=== PATIENT | male | born 1945 | race Caucasian/White ===

== ENCOUNTER 2023-05-24 12:10 | Inpatient (IN) | payer MEDICARE, OTHER ==
[~2023-05-24] VITALS: Ht 162.6 cm; Wt 65.3 kg
[2023-05-24] MEDS ORDERED: IV NORMAL SALINE 1000 ML BAG IV ONE (12:30)
[2023-05-24 13:06] LABS: BASOPHILS % (AUTO) 0.3 % (0.0-2.0); EOSINOPHILS # (AUTO) 0.1 K/uL (0.0-0.7); EOSINOPHILS % (AUTO) 1.6 % (0.0-7.0); HEMATOCRIT 40.8 % (36.7-47.1); HEMOGLOBIN 13.7 g/dL (12.5-16.3); LYMPHOCYTES % (AUTO) 15.3 % (20.5-51.5); MEAN CORPUSCULAR HEMOGLOBIN 31.4 uug (23.8-33.4); MEAN CORPUSCULAR HGB CONC 34 g/dL (32.5-36.3); MEAN CORPUSCULAR VOLUME 93.7 fL (73.0-96.2); MONOCYTES # (AUTO) 0.4 K/uL (0.1-1.30); MONOCYTES % (AUTO) 6.4 % (0.0-11.0); NEUTROPHILS # (AUTO) 5.2 K/uL (1.8-8.9); NEUTROPHILS % (AUTO) 76.4 % (38.5-71.5); PLATELET COUNT (AUTO) 150 K/uL (152-348); RED BLOOD CELL COUNT(AUTO) 4.36 MIL/uL (4.06-5.63); RED CELL DISTRIBUTION WIDTH 13.8 % (12.1-16.2); WHITE BLOOD COUNT (AUTO) 6.9 K/uL (3.6-10.2)
[2023-05-24 13:16] LABS: CALCIUM 8.7 mg/dL (8.5-10.1); CARBON DIOXIDE 28 mmol/L (21-32); CHLORIDE 107 mmol/L (98-107); CREATININE 1.3 mg/dL (0.6-1.3); GLUCOSE 94 mg/dL (74-106); POTASSIUM 3.9 mmol/L (3.5-5.1); SODIUM SERUM 143 mmol/L (136-145); UREA NITROGEN, BLOOD 32 mg/dL (7-18)
[2023-05-24 13:21] LABS: AMMONIA < 10 umol/L (11-32)
[2023-05-24 13:22] LABS: ALANINE AMINOTRANSFERASE 21 U/L (16-63); ALKALINE PHOSPHATASE 81 U/L (50-136); ASPARTATE AMINOTRANSFERASE 8 U/L (15-37); BILIRUBIN,DIRECT 0.1 mg/dL (0.0-0.2); BILIRUBIN,TOTAL 0.3 mg/dL (0.2-1.0); TOTAL PROTEIN, SERUM 6.3 g/dL (6.4-8.2)
[2023-05-24 13:27] LABS: THYROID STIMULATING HORMONE 1.828 mIU/mL (0.358-3.740)
[2023-05-24] MEDS ORDERED: IV NS 1000 ML 1,000 ML IV ONE (13:45)
[2023-05-24] MEDS ORDERED: MAGNESIUM HYDROXIDE 30 ML LIQUID UDC PO PRN (14:15)
[2023-05-24] MEDS ORDERED: ONDANSETRON 4 MG/2 ML VIAL IV PRN (14:15)
[2023-05-24] MEDS ORDERED: ACETAMINOPHEN 325 MG TABLET PO PRN (14:15)
[2023-05-24 15:13] LABS: *BILIRUBIN,URIN NEGATIVE (NEGATIVE); *BLOOD, URINE NEGATIVE (NEGATIVE); *CLARITY,URINE CLEAR (CLEAR); *COLOR,URINE YELLOW (YELLOW); *KETONES,URINE NEGATIVE (NEGATIVE); *PROTEIN,URINE NEGATIVE (NEGATIVE); *UROBILINOGEN,URINE 0.2 E.U./dl (NORMAL); LEUKOCYTE ESTERASE ,URINE NEGATIVE (NEGATIVE); NITRITE, URINE NEGATIVE (NEGATIVE); UGLUCOSE NEGATIVE (NEGATIVE)
[2023-05-24] MEDS ORDERED: CARB200C6 PO (16:38)
[2023-05-24] MEDS ORDERED: CLOP75TA33 PO (16:38)
[2023-05-24] MEDS ORDERED: AMIT50TA3 PO (16:38)
[2023-05-24] MEDS ORDERED: HYDR12.55 PO (16:39)
[2023-05-24] MEDS ORDERED: SIMV-46 PO (16:39)
[2023-05-24] MEDS ORDERED: OXYB-58 PO (16:39)
[2023-05-24] MEDS ORDERED: LATA2.5D2 EACHEYE (16:39)
[2023-05-24] MEDS ORDERED: TAMS-3 PO (16:39)
[2023-05-24] MEDS ORDERED: TERB250T53 PO (16:39)
[2023-05-24] MEDS ORDERED: FINA5TAB11 PO (16:39)
[2023-05-24] MEDS ORDERED: METO-356 PO (16:39)
[2023-05-24] MEDS ORDERED: BRIM5DRO2 EACHEYE (16:39)
[2023-05-24] MEDS ORDERED: LOVA40TA2 PO (16:39)
[2023-05-24] MEDS ORDERED: PSYL1POW MC (16:39)
[2023-05-24 17:01] VITALS: BP 130/62; TEMP 98; O2SAT 79
[2023-05-24 17:10] VITALS: BP 133/60; O2SAT 92
[2023-05-24 17:31] VITALS: BP 141/62; TEMP 97.4; O2SAT 97
[2023-05-24] MEDS: IV NS 1000 ML 1,000 ML IV PRN ×2 (18:16→20:50)
[2023-05-24 20:30] VITALS: BP 136/50; TEMP 97.9; O2SAT 97
[2023-05-24] MEDS: HYDROCODONE/APAP 10-325 MG TABLET PO PRN (23:08)
[2023-05-25 04:45] VITALS: BP 128/48; TEMP 97.6; O2SAT 98
[2023-05-25 06:50] LABS: BASOPHILS % (AUTO) 0.8 % (0.0-2.0); EOSINOPHILS # (AUTO) 0.1 K/uL (0.0-0.7); EOSINOPHILS % (AUTO) 1.9 % (0.0-7.0); HEMATOCRIT 39.4 % (36.7-47.1); HEMOGLOBIN 13.1 g/dL (12.5-16.3); LYMPHOCYTES # (AUTO) 1.5 K/uL (0.8-4.8); LYMPHOCYTES % (AUTO) 23.4 % (20.5-51.5); MEAN CORPUSCULAR HEMOGLOBIN 31.2 uug (23.8-33.4); MEAN CORPUSCULAR HGB CONC 33 g/dL (32.5-36.3); MEAN CORPUSCULAR VOLUME 94.3 fL (73.0-96.2); MONOCYTES # (AUTO) 0.4 K/uL (0.1-1.30); MONOCYTES % (AUTO) 6.3 % (0.0-11.0); NEUTROPHILS # (AUTO) 4.2 K/uL (1.8-8.9); NEUTROPHILS % (AUTO) 67.6 % (38.5-71.5); PLATELET COUNT (AUTO) 145 K/uL (152-348); RED BLOOD CELL COUNT(AUTO) 4.18 MIL/uL (4.06-5.63); RED CELL DISTRIBUTION WIDTH 13.9 % (12.1-16.2); WHITE BLOOD COUNT (AUTO) 6.2 K/uL (3.6-10.2)
[2023-05-25 07:11] LABS: DIFFERENTIAL COMMENT 1
[2023-05-25 07:12] LABS: CALCIUM 8.2 mg/dL (8.5-10.1); CARBON DIOXIDE 28 mmol/L (21-32); CHLORIDE 107 mmol/L (98-107); CREATININE 1.1 mg/dL (0.6-1.3); GLUCOSE 89 mg/dL (74-106); MAGNESIUM 1.9 mg/dL (1.8-2.4); PHOSPHOROUS 2.9 mg/dL (2.5-4.9); POTASSIUM 3.9 mmol/L (3.5-5.1); SODIUM SERUM 141 mmol/L (136-145); UREA NITROGEN, BLOOD 23 mg/dL (7-18)
[2023-05-25 11:38] VITALS: BP 118/72; TEMP 98; O2SAT 98
[2023-05-25] MEDS ORDERED: ESCI-9 PO (15:20)
[2023-05-25 15:42] VITALS: BP 130/88; TEMP 98.8; O2SAT 97
[2023-05-25] MEDS: CARBAMAZEPINE 200 MG TABLET PO SCH (16:44)
[2023-05-25] MEDS ORDERED: BRIM5DRO2 EACHEYE (17:24)
[2023-05-25 20:00] VITALS: BP 141/90; TEMP 98; O2SAT 93
[2023-05-25] MEDS ORDERED: SIMVASTATIN 20 MG TABLET PO SCH (21:00)
[2023-05-25] MEDS: TAMSULOSIN HCL 0.4 MG CAP.SR.24H PO SCH (21:50)
[2023-05-25] MEDS: AMITRIPTYLINE HCL 50 MG TABLET PO SCH (21:50)
[2023-05-25] MEDS: HYDROCODONE/APAP 10-325 MG TABLET PO PRN (21:52)
[2023-05-25] MEDS: ATORVASTATIN 10 MG TABLET PO SCH (21:53)
[2023-05-26] VITALS: BP 140/84; TEMP 97.9; O2SAT 98
[2023-05-26 04:00] VITALS: BP 145/89; TEMP 97.8; O2SAT 98
[2023-05-26] MEDS ORDERED: Medication Not On Formulary EA (Hydrochlorothiazide 12.5 MG) PO SCH (09:00)
[2023-05-26] MEDS: CLOPIDOGREL 75 MG TABLET PO SCH (09:49)
[2023-05-26] MEDS: FINASTERIDE 5 MG TABLET PO SCH (09:49)
[2023-05-26] MEDS: OXYBUTYNIN XL 5 MG TABSR PO SCH (09:49)
[2023-05-26] MEDS: CARBAMAZEPINE 200 MG TABLET PO SCH ×2 (09:49→16:23)
[2023-05-26] MEDS: HYDROCHLOROTHIAZIDE 12.5 MG CAPSULE PO SCH (09:49)
[2023-05-26] MEDS: METOPROLOL SUCCINATE XL 25 MG TAB.SR.24H PO SCH (09:56)
[2023-05-26 09:57] VITALS: BP 142/83; TEMP 98; O2SAT 98
[2023-05-26 11:31] VITALS: BP 120/82; TEMP 98.5; O2SAT 95
[2023-05-26 15:35] VITALS: BP 147/95; TEMP 98.2; O2SAT 93
[2023-05-26 20:00] VITALS: BP 141/81; TEMP 98.4; O2SAT 87
[2023-05-26 20:33] LABS: ABG BASE EXCESS -5.5 mmol/L (-2.0-2.0); ABG HCO3 18.3 mmol/L (22.0-26.0); ABG PH 7.376 (7.340-7.440); ABG SITE RIGHT RADIAL; ABG TOTAL HEMOGLOBIN 16.8 G/dL (14.0-18.0); AaDO2 84.3 mmHg; COHb 1.5 % (0.0-3.9); MetHb 0.3 % (0.0-1.5); O2Hb 83.6 % (94.0-97.0)
[2023-05-26] MEDS: AMITRIPTYLINE HCL 50 MG TABLET PO SCH (21:46)
[2023-05-26] MEDS: HYDROCODONE/APAP 10-325 MG TABLET PO PRN (21:46)
[2023-05-26] MEDS: TAMSULOSIN HCL 0.4 MG CAP.SR.24H PO SCH (21:46)
[2023-05-26] MEDS: ATORVASTATIN 10 MG TABLET PO SCH (21:46)
[2023-05-27 01:09] VITALS: O2SAT 97
[2023-05-27 04:00] VITALS: BP 106/58; TEMP 98.2; O2SAT 87; O2SAT 99
[2023-05-27] MEDS: METOPROLOL SUCCINATE XL 25 MG TAB.SR.24H PO SCH (09:00)
[2023-05-27] MEDS: CLOPIDOGREL 75 MG TABLET PO SCH (10:30)
[2023-05-27] MEDS: OXYBUTYNIN XL 5 MG TABSR PO SCH (10:30)
[2023-05-27] MEDS: CARBAMAZEPINE 200 MG TABLET PO SCH ×2 (10:30→17:09)
[2023-05-27] MEDS: HYDROCHLOROTHIAZIDE 12.5 MG CAPSULE PO SCH (10:30)
[2023-05-27] MEDS: FINASTERIDE 5 MG TABLET PO SCH (10:30)
[2023-05-27] MEDS ORDERED: ENOXAPARIN SODIUM 40 MG/0.4 ML DISP.SYRIN SQ SCH ×2 (11:00→11:47)
[2023-05-27 11:45] VITALS: BP 80/47; TEMP 98.2; O2SAT 92
[2023-05-27] MEDS ORDERED: PIPERACILLIN SODIUM/TAZOBACTAM 3.375 G in IV DEXTROSE 5% 50 ML IV SCH (12:15)
[2023-05-27] MEDS: PIPERACILLIN SODIUM/TAZOBACTAM 3.375 G in IV DEXTROSE 5% 100 ML IV SCH ×2 (14:16→22:07)
[2023-05-27 15:07] VITALS: BP 95/30; TEMP 98.6; O2SAT 95
[2023-05-27 20:00] VITALS: BP 101/69; TEMP 98; O2SAT 93
[2023-05-27] MEDS ORDERED: ENOXAPARIN SODIUM 60 MG/0.6 ML DISP.SYRIN SQ ONE (21:00)
[2023-05-27] MEDS: AMITRIPTYLINE HCL 50 MG TABLET PO SCH (21:11)
[2023-05-27] MEDS: ATORVASTATIN 10 MG TABLET PO SCH (21:11)
[2023-05-27] MEDS: TAMSULOSIN HCL 0.4 MG CAP.SR.24H PO SCH (21:20)
[2023-05-27] MEDS: HYDROCODONE/APAP 10-325 MG TABLET PO PRN (23:39)
[2023-05-28] VITALS (14 sets, daily range): BP systolic 99–123; BP diastolic 60–92; TEMP 97.7–98.9; O2SAT 93–100
[2023-05-28 00:41] LABS: ABG BASE EXCESS -3.6 mmol/L (-2.0-2.0); ABG HCO3 19.9 mmol/L (22.0-26.0); ABG PCO2 31.8 mmHg (35.0-48.0); ABG PH 7.414 (7.340-7.440); ABG PO2 63.6 mmHg (75.0-100.0); ABG SITE RIGHT BRACHIAL; ABG TOTAL HEMOGLOBIN 14.3 G/dL (14.0-18.0); AaDO2 92.9 mmHg; COHb 0.8 % (0.0-3.9); O2Hb 91.8 % (94.0-97.0)
[2023-05-28] MEDS: LEVALBUTEROL HCL NEB 0.63 MG/3 ML NEBU NEB SCH ×4 (01:15→21:54)
[2023-05-28] MEDS: IPRATROPIUM BROMIDE 0.5 MG/2.5 ML NEBU NEB SCH ×4 (01:15→21:54)
[2023-05-28] MEDS: PIPERACILLIN SODIUM/TAZOBACTAM 3.375 G in IV DEXTROSE 5% 100 ML IV SCH (05:34)
[2023-05-28 07:22] LABS: EOSINOPHILS # (AUTO) 0.2 K/uL (0.0-0.7); EOSINOPHILS % (AUTO) 1.7 % (0.0-7.0); HEMATOCRIT 31.7 % (36.7-47.1); HEMOGLOBIN 9.2 g/dL (12.5-16.3); LYMPHOCYTES # (AUTO) 0.3 K/uL (0.8-4.8); LYMPHOCYTES % (AUTO) 2.6 % (20.5-51.5); MEAN CORPUSCULAR HEMOGLOBIN 32.2 uug (23.8-33.4); MEAN CORPUSCULAR HGB CONC 29 g/dL (32.5-36.3); MEAN CORPUSCULAR VOLUME 111.3 fL (73.0-96.2); MONOCYTES # (AUTO) 1.4 K/uL (0.1-1.30); NEUTROPHILS # (AUTO) 8.4 K/uL (1.8-8.9); NEUTROPHILS % (AUTO) 81.7 % (38.5-71.5); PLATELET COUNT (AUTO) 80 K/uL (152-348); RED BLOOD CELL COUNT(AUTO) 2.84 MIL/uL (4.06-5.63); RED CELL DISTRIBUTION WIDTH 15.4 % (12.1-16.2); WHITE BLOOD COUNT (AUTO) 10.2 K/uL (3.6-10.2)
[2023-05-28 07:30] LABS: CALCIUM 8.8 mg/dL (8.5-10.1); CARBON DIOXIDE 20 mmol/L (21-32); CHLORIDE 107 mmol/L (98-107); GLUCOSE 161 mg/dL (74-106); POTASSIUM 5.8 mmol/L (3.5-5.1); SODIUM SERUM 139 mmol/L (136-145)
[2023-05-28 07:33] LABS: UREA NITROGEN, BLOOD 88 mg/dL (7-18)
[2023-05-28 07:37] LABS: DIFFERENTIAL COMMENT 1
[2023-05-28] MEDS ORDERED: ENOXAPARIN SODIUM 60 MG/0.6 ML DISP.SYRIN SQ SCH ×2 (09:00→21:00)
[2023-05-28] MEDS ORDERED: CLOPIDOGREL 75 MG TABLET PO SCH (09:00)
[2023-05-28] MEDS: HYDROCHLOROTHIAZIDE 12.5 MG CAPSULE PO SCH (09:35)
[2023-05-28] MEDS: CARBAMAZEPINE 200 MG TABLET PO SCH ×2 (09:35→16:28)
[2023-05-28] MEDS: METOPROLOL SUCCINATE XL 25 MG TAB.SR.24H PO SCH (09:35)
[2023-05-28] MEDS: OXYBUTYNIN XL 5 MG TABSR PO SCH (09:35)
[2023-05-28] MEDS: FINASTERIDE 5 MG TABLET PO SCH (09:35)
[2023-05-28] MEDS ORDERED: IV NS 1000 ML 1,000 ML IV PRN (09:45)
[2023-05-28] MEDS ORDERED: IV NORMAL SALINE 1000 ML BAG IV PRN (12:15)
[2023-05-28] MEDS: IV NS 1000 ML 1,000 ML IV PRN ×2 (12:58→23:24)
[2023-05-28 13:04] LABS: CALCIUM 8.9 mg/dL (8.5-10.1); CARBON DIOXIDE 20 mmol/L (21-32); CHLORIDE 107 mmol/L (98-107); CREATININE 5.3 mg/dL (0.6-1.3); GLUCOSE 164 mg/dL (74-106); POTASSIUM 5.4 mmol/L (3.5-5.1); SODIUM SERUM 139 mmol/L (136-145)
[2023-05-28 13:05] LABS: UREA NITROGEN, BLOOD 93 mg/dL (7-18)
[2023-05-28 13:15] LABS: ANISOCYTOSIS 1+; BASOPHILS % (MANUAL) 0 % (0-2); EOSINOPHILS % (MANUAL) 8 % (0-8); LYMPHOCYTES % (MANUAL) 16 % (20-40); NEUTROPHILS % (MANUAL) 76 % (42-75); PLATELET ESTIMATE DECREASED
[2023-05-28] MEDS ORDERED: PIPERACILLIN SODIUM/TAZOBACTAM 3.375 G in IV DEXTROSE 5% 100 ML IV SCH (14:00)
[2023-05-28] MEDS: HYDROCODONE/APAP 10-325 MG TABLET PO PRN (15:54)
[2023-05-28] MEDS ORDERED: IV NORMAL SALINE 500 ML BAG IV ONE (17:45)
[2023-05-28] MEDS ORDERED: CEFEPIME HCL 2 G in IV DEXTROSE 5% 100 ML IV SCH (18:00)
[2023-05-28] MEDS: TAMSULOSIN HCL 0.4 MG CAP.SR.24H PO SCH (21:05)
[2023-05-28] MEDS: AMITRIPTYLINE HCL 50 MG TABLET PO SCH (21:05)
[2023-05-28] MEDS: ATORVASTATIN 10 MG TABLET PO SCH (21:05)
[2023-05-29] VITALS (11 sets, daily range): BP systolic 92–130; BP diastolic 55–71; TEMP 97.6–99.9; O2SAT 93–100
[2023-05-29 01:35] LABS: *BILIRUBIN,URIN NEGATIVE (NEGATIVE); *BLOOD, URINE 2+ (NEGATIVE); *CLARITY,URINE CLEAR (CLEAR); *COLOR,URINE YELLOW (YELLOW); *KETONES,URINE NEGATIVE (NEGATIVE); *PROTEIN,URINE 1+ (NEGATIVE); *UROBILINOGEN,URINE 0.2 E.U./dl (NORMAL); LEUKOCYTE ESTERASE ,URINE 1+ (NEGATIVE); NITRITE, URINE NEGATIVE (NEGATIVE); PH,URINE 5.5 (5.0-8.0); UGLUCOSE NEGATIVE (NEGATIVE)
[2023-05-29] MEDS: IPRATROPIUM BROMIDE 0.5 MG/2.5 ML NEBU NEB SCH ×4 (02:32→20:00)
[2023-05-29] MEDS: LEVALBUTEROL HCL NEB 0.63 MG/3 ML NEBU NEB SCH ×4 (02:33→20:00)
[2023-05-29 03:52] LABS: RBC,URINE 20-50 /HPF (0-3)
[2023-05-29 03:53] LABS: BACTERIA,URINE FEW /HPF (NONE SEEN); SQUAMOUS EPITHELIAL CELL,UR NONE SEEN /HPF (NONE SEEN)
[2023-05-29 04:07] LABS: *CREATININE,URINE 69.8 mg/dL (30-125); *URINE TOTAL PROTEIN RANDOM 43.1 mg/dL (<150/24HR)
[2023-05-29 07:42] LABS: BASOPHILS % (AUTO) 0.2 % (0.0-2.0); EOSINOPHILS # (AUTO) 0.1 K/uL (0.0-0.7); EOSINOPHILS % (AUTO) 0.8 % (0.0-7.0); HEMATOCRIT 34.1 % (36.7-47.1); HEMOGLOBIN 11.5 g/dL (12.5-16.3); LYMPHOCYTES # (AUTO) 0.3 K/uL (0.8-4.8); LYMPHOCYTES % (AUTO) 2.8 % (20.5-51.5); MEAN CORPUSCULAR HEMOGLOBIN 32.3 uug (23.8-33.4); MEAN CORPUSCULAR HGB CONC 34 g/dL (32.5-36.3); MEAN CORPUSCULAR VOLUME 95.9 fL (73.0-96.2); MONOCYTES % (AUTO) 9.3 % (0.0-11.0); NEUTROPHILS # (AUTO) 9.1 K/uL (1.8-8.9); NEUTROPHILS % (AUTO) 86.9 % (38.5-71.5); PLATELET COUNT (AUTO) 121 K/uL (152-348); RED BLOOD CELL COUNT(AUTO) 3.55 MIL/uL (4.06-5.63); RED CELL DISTRIBUTION WIDTH 14.3 % (12.1-16.2); WHITE BLOOD COUNT (AUTO) 10.5 K/uL (3.6-10.2)
[2023-05-29 07:54] LABS: DIFFERENTIAL COMMENT 1
[2023-05-29 07:58] LABS: ALANINE AMINOTRANSFERASE 24 U/L (16-63); ALKALINE PHOSPHATASE 40 U/L (50-136); ASPARTATE AMINOTRANSFERASE 19 U/L (15-37); BILIRUBIN,TOTAL 0.4 mg/dL (0.2-1.0); CALCIUM 8.3 mg/dL (8.5-10.1); CARBON DIOXIDE 24 mmol/L (21-32); CHLORIDE 115 mmol/L (98-107); CREATINE KINASE, TOTAL 217 U/L (39-308); CREATININE 4.3 mg/dL (0.6-1.3); GLUCOSE 146 mg/dL (74-106); MAGNESIUM 1.9 mg/dL (1.8-2.4); PHOSPHOROUS 3.9 mg/dL (2.5-4.9); POTASSIUM 4.8 mmol/L (3.5-5.1); SODIUM SERUM 147 mmol/L (136-145); TOTAL PROTEIN, SERUM 5.4 g/dL (6.4-8.2)
[2023-05-29 08:11] LABS: UREA NITROGEN, BLOOD 95 mg/dL (7-18)
[2023-05-29] MEDS: METOPROLOL SUCCINATE XL 25 MG TAB.SR.24H PO SCH (08:47)
[2023-05-29] MEDS: OXYBUTYNIN XL 5 MG TABSR PO SCH (08:47)
[2023-05-29] MEDS: CARBAMAZEPINE 200 MG TABLET PO SCH ×2 (08:48→16:05)
[2023-05-29] MEDS: FINASTERIDE 5 MG TABLET PO SCH (08:48)
[2023-05-29] MEDS ORDERED: VANCOMYCIN IV 1,000 MG in IV DEXTROSE 5% 250 ML IV ONE (14:30)
[2023-05-29] MEDS: HYDROCODONE/APAP 10-325 MG TABLET PO PRN ×2 (16:30→22:06)
[2023-05-29] MEDS: CEFEPIME HCL 1 G in IV DEXTROSE 5% 50 ML IV SCH (17:19)
[2023-05-29] MEDS: AMITRIPTYLINE HCL 50 MG TABLET PO SCH (20:46)
[2023-05-29] MEDS: TAMSULOSIN HCL 0.4 MG CAP.SR.24H PO SCH (20:46)
[2023-05-29] MEDS: ATORVASTATIN 10 MG TABLET PO SCH (20:46)
[2023-05-29] MEDS: IV NS 1000 ML 1,000 ML IV PRN (20:47)
[2023-05-30] VITALS (16 sets, daily range): BP systolic 122–147; BP diastolic 50–69; TEMP 98–98.2; O2SAT 86–100
[2023-05-30] MEDS: IPRATROPIUM BROMIDE 0.5 MG/2.5 ML NEBU NEB SCH ×4 (02:28→20:03)
[2023-05-30] MEDS: LEVALBUTEROL HCL NEB 0.63 MG/3 ML NEBU NEB SCH ×4 (02:29→20:03)
[2023-05-30 07:11] LABS: A/G RATIO 0.8 (0.7-1.7); ALBUMIN 2.2 g/dL (2.9-4.4); ALPHA-1-GLOBULIN 0.5 g/dL (0.0-0.4); ALPHA-2-GLOBULIN 0.8 g/dL (0.4-1.0); BETA GLOBULIN 0.7 g/dL (0.7-1.3); GAMMA GLOBULIN 0.6 g/dL (0.4-1.8); GLOBULIN, TOTAL 2.6 g/dL (2.2-3.9); M-SPIKE Not Observed g/dL (Not Observed); PTH, INTACT 76 pg/mL (15-65)
[2023-05-30 07:38] LABS: BASOPHILS # (AUTO) 0.1 K/UL (0.0-0.2); BASOPHILS % (AUTO) 0.7 % (0.0-2.0); EOSINOPHILS # (AUTO) 0.3 K/uL (0.0-0.7); EOSINOPHILS % (AUTO) 2.5 % (0.0-7.0); HEMATOCRIT 33.2 % (36.7-47.1); LYMPHOCYTES # (AUTO) 0.2 K/uL (0.8-4.8); LYMPHOCYTES % (AUTO) 2.1 % (20.5-51.5); MEAN CORPUSCULAR HEMOGLOBIN 31.7 uug (23.8-33.4); MEAN CORPUSCULAR HGB CONC 33 g/dL (32.5-36.3); MEAN CORPUSCULAR VOLUME 95.4 fL (73.0-96.2); NEUTROPHILS % (AUTO) 85.7 % (38.5-71.5); PLATELET COUNT (AUTO) 132 K/uL (152-348); RED BLOOD CELL COUNT(AUTO) 3.48 MIL/uL (4.06-5.63); WHITE BLOOD COUNT (AUTO) 10.5 K/uL (3.6-10.2)
[2023-05-30 07:58] LABS: CALCIUM 8.4 mg/dL (8.5-10.1); CARBON DIOXIDE 22 mmol/L (21-32); CHLORIDE 118 mmol/L (98-107); CREATININE 2.9 mg/dL (0.6-1.3); GLUCOSE 123 mg/dL (74-106); POTASSIUM 4.1 mmol/L (3.5-5.1); SODIUM SERUM 152 mmol/L (136-145); UREA NITROGEN, BLOOD 76 mg/dL (7-18)
[2023-05-30 08:01] LABS: DIFFERENTIAL COMMENT 1
[2023-05-30 09:12] LABS: ABG BASE EXCESS -5.3 mmol/L (-2.0-2.0); ABG HCO3 18.5 mmol/L (22.0-26.0); ABG PH 7.394 (7.340-7.440); ABG PO2 188.7 mmHg (75.0-100.0); ABG SITE RIGHT RADIAL; ABG TOTAL HEMOGLOBIN 12.7 G/dL (14.0-18.0); AaDO2 99.3 mmHg; COHb 0.3 % (0.0-3.9); MetHb 0.2 % (0.0-1.5); O2Hb 98.5 % (94.0-97.0)
[2023-05-30] MEDS: METOPROLOL SUCCINATE XL 25 MG TAB.SR.24H PO SCH (09:50)
[2023-05-30] MEDS: OXYBUTYNIN XL 5 MG TABSR PO SCH (09:50)
[2023-05-30] MEDS: FINASTERIDE 5 MG TABLET PO SCH (09:50)
[2023-05-30] MEDS: CARBAMAZEPINE 200 MG TABLET PO SCH ×2 (09:50→17:34)
[2023-05-30] MEDS ORDERED: VANCOMYCIN IV 1,000 MG in IV DEXTROSE 5% 250 ML IV ONE (10:00)
[2023-05-30] MEDS ORDERED: SODIUM BICARBONATE 8.4% 50 MEQ/50 ML DISP.SYRIN IV ONE (10:00)
[2023-05-30] MEDS: IV NS 1000 ML 1,000 ML IV PRN (11:12)
[2023-05-30] MEDS: IV 1/2NS 1000 ML 1,000 ML IV SCH (14:50)
[2023-05-30] MEDS: ENSURE ENLIVE (VAN) 240 ML LIQUID PO SCH (17:35)
[2023-05-30] MEDS: CEFEPIME HCL 1 G in IV DEXTROSE 5% 50 ML IV SCH (18:18)
[2023-05-30] MEDS: AMITRIPTYLINE HCL 50 MG TABLET PO SCH (21:05)
[2023-05-30] MEDS: ATORVASTATIN 10 MG TABLET PO SCH (21:05)
[2023-05-30] MEDS: TAMSULOSIN HCL 0.4 MG CAP.SR.24H PO SCH (21:05)
[2023-05-31] VITALS (13 sets, daily range): BP systolic 127–132; BP diastolic 58–78; TEMP 97–98; O2SAT 95–100
[2023-05-31] MEDS: IV 1/2NS 1000 ML 1,000 ML IV SCH (01:05)
[2023-05-31] MEDS: IPRATROPIUM BROMIDE 0.5 MG/2.5 ML NEBU NEB SCH ×4 (01:36→19:50)
[2023-05-31] MEDS: LEVALBUTEROL HCL NEB 0.63 MG/3 ML NEBU NEB SCH ×4 (01:36→19:50)
[2023-05-31 06:37] LABS: BASOPHILS # (AUTO) 0.1 K/UL (0.0-0.2); BASOPHILS % (AUTO) 1.1 % (0.0-2.0); EOSINOPHILS # (AUTO) 0.3 K/uL (0.0-0.7); EOSINOPHILS % (AUTO) 2.6 % (0.0-7.0); HEMATOCRIT 33.6 % (36.7-47.1); HEMOGLOBIN 11.3 g/dL (12.5-16.3); LYMPHOCYTES # (AUTO) 0.4 K/uL (0.8-4.8); LYMPHOCYTES % (AUTO) 3.8 % (20.5-51.5); MEAN CORPUSCULAR HEMOGLOBIN 31.8 uug (23.8-33.4); MEAN CORPUSCULAR HGB CONC 34 g/dL (32.5-36.3); MEAN CORPUSCULAR VOLUME 94.1 fL (73.0-96.2); MONOCYTES # (AUTO) 1.1 K/uL (0.1-1.30); MONOCYTES % (AUTO) 10.7 % (0.0-11.0); NEUTROPHILS # (AUTO) 8.2 K/uL (1.8-8.9); NEUTROPHILS % (AUTO) 81.8 % (38.5-71.5); PLATELET COUNT (AUTO) 130 K/uL (152-348); RED BLOOD CELL COUNT(AUTO) 3.57 MIL/uL (4.06-5.63)
[2023-05-31 06:43] LABS: DIFFERENTIAL COMMENT 1
[2023-05-31 06:55] LABS: CALCIUM 8.3 mg/dL (8.5-10.1); CARBON DIOXIDE 22 mmol/L (21-32); CHLORIDE 118 mmol/L (98-107); CREATININE 2.3 mg/dL (0.6-1.3); GLUCOSE 127 mg/dL (74-106); POTASSIUM 3.3 mmol/L (3.5-5.1); SODIUM SERUM 152 mmol/L (136-145); UREA NITROGEN, BLOOD 56 mg/dL (7-18); VANCOMYCIN,RANDOM 17.5 ug/mL (20.0-30.0)
[2023-05-31] MEDS: ENSURE ENLIVE (VAN) 240 ML LIQUID PO SCH ×2 (08:33→17:29)
[2023-05-31] MEDS: CARBAMAZEPINE 200 MG TABLET PO SCH ×2 (08:45→17:32)
[2023-05-31] MEDS: OXYBUTYNIN XL 5 MG TABSR PO SCH (08:45)
[2023-05-31] MEDS: FINASTERIDE 5 MG TABLET PO SCH (08:45)
[2023-05-31] MEDS: METOPROLOL SUCCINATE XL 25 MG TAB.SR.24H PO SCH (08:51)
[2023-05-31] MEDS ORDERED: VANCOMYCIN IV 500 MG in IV DEXTROSE 5% 100 ML IV ONE (10:15)
[2023-05-31] MEDS: POTASSIUM CHLORIDE 20 MEQ in IV 1/2NS 1000 ML 1,000 ML IV SCH ×2 (14:28→22:16)
[2023-05-31] MEDS: CEFEPIME HCL 1 G in IV DEXTROSE 5% 50 ML IV SCH (17:32)
[2023-05-31] MEDS: AMITRIPTYLINE HCL 50 MG TABLET PO SCH (21:04)
[2023-05-31] MEDS: TAMSULOSIN HCL 0.4 MG CAP.SR.24H PO SCH (21:05)
[2023-05-31] MEDS: HYDROCODONE/APAP 10-325 MG TABLET PO PRN (21:06)
[2023-05-31] MEDS: ATORVASTATIN 10 MG TABLET PO SCH (21:06)
[2023-06-01] VITALS (12 sets, daily range): BP systolic 111–139; BP diastolic 68–78; TEMP 97.9–99; O2SAT 88–100
[2023-06-01] MEDS: LEVALBUTEROL HCL NEB 0.63 MG/3 ML NEBU NEB SCH ×4 (01:55→19:30)
[2023-06-01] MEDS: IPRATROPIUM BROMIDE 0.5 MG/2.5 ML NEBU NEB SCH ×4 (01:55→19:30)
[2023-06-01] MEDS: HYDROCODONE/APAP 10-325 MG TABLET PO PRN (03:16)
[2023-06-01] MEDS: POTASSIUM CHLORIDE 20 MEQ in IV 1/2NS 1000 ML 1,000 ML IV SCH (06:52)
[2023-06-01] MEDS: ENSURE ENLIVE (VAN) 240 ML LIQUID PO SCH ×2 (08:00→16:19)
[2023-06-01 08:09] LABS: BASOPHILS % (AUTO) 0.3 % (0.0-2.0); EOSINOPHILS # (AUTO) 0.3 K/uL (0.0-0.7); EOSINOPHILS % (AUTO) 2.5 % (0.0-7.0); HEMATOCRIT 32.6 % (36.7-47.1); LYMPHOCYTES # (AUTO) 0.4 K/uL (0.8-4.8); LYMPHOCYTES % (AUTO) 3.6 % (20.5-51.5); MEAN CORPUSCULAR HEMOGLOBIN 31.9 uug (23.8-33.4); MEAN CORPUSCULAR HGB CONC 34 g/dL (32.5-36.3); MEAN CORPUSCULAR VOLUME 94.2 fL (73.0-96.2); MONOCYTES # (AUTO) 1.2 K/uL (0.1-1.30); MONOCYTES % (AUTO) 11.4 % (0.0-11.0); NEUTROPHILS # (AUTO) 8.5 K/uL (1.8-8.9); NEUTROPHILS % (AUTO) 82.2 % (38.5-71.5); PLATELET COUNT (AUTO) 152 K/uL (152-348); RED BLOOD CELL COUNT(AUTO) 3.46 MIL/uL (4.06-5.63); RED CELL DISTRIBUTION WIDTH 14.1 % (12.1-16.2); WHITE BLOOD COUNT (AUTO) 10.3 K/uL (3.6-10.2)
[2023-06-01 08:24] LABS: DIFFERENTIAL COMMENT 1
[2023-06-01 08:28] LABS: CALCIUM 8.2 mg/dL (8.5-10.1); CARBON DIOXIDE 24 mmol/L (21-32); CHLORIDE 117 mmol/L (98-107); CREATININE 2.1 mg/dL (0.6-1.3); GLUCOSE 149 mg/dL (74-106); POTASSIUM 3.3 mmol/L (3.5-5.1); SODIUM SERUM 151 mmol/L (136-145); UREA NITROGEN, BLOOD 49 mg/dL (7-18)
[2023-06-01 08:54] LABS: ABG BASE EXCESS -3.1 mmol/L (-2.0-2.0); ABG HCO3 20.8 mmol/L (22.0-26.0); ABG PCO2 33.2 mmHg (35.0-48.0); ABG PH 7.414 (7.340-7.440); ABG PO2 79.2 mmHg (75.0-100.0); ABG SITE RIGHT RADIAL; ABG TOTAL HEMOGLOBIN 11.7 G/dL (14.0-18.0); COHb 0.1 % (0.0-3.9); MetHb 0.3 % (0.0-1.5); O2Hb 95.4 % (94.0-97.0)
[2023-06-01] MEDS: FINASTERIDE 5 MG TABLET PO SCH (09:45)
[2023-06-01] MEDS: CARBAMAZEPINE 200 MG TABLET PO SCH ×2 (09:49→16:19)
[2023-06-01] MEDS: METOPROLOL SUCCINATE XL 25 MG TAB.SR.24H PO SCH (09:49)
[2023-06-01] MEDS: OXYBUTYNIN XL 5 MG TABSR PO SCH (09:54)
[2023-06-01] MEDS ORDERED: POTASSIUM CHLORIDE 20 MEQ in IV 1/2NS 1000 ML 1,000 ML IV PRN (10:21)
[2023-06-01] MEDS: IV D5W 1000ML 1,000 ML IV SCH ×2 (13:46→22:52)
[2023-06-01] MEDS: POTASSIUM CHLORIDE 50 ML IV SCH ×3 (14:01→15:45)
[2023-06-01] MEDS ORDERED: VANCOMYCIN IV 1,000 MG in IV DEXTROSE 5% 250 ML IV ONE (15:00)
[2023-06-01] MEDS: CEFEPIME HCL 1 G in IV DEXTROSE 5% 50 ML IV SCH (20:28)
[2023-06-01] MEDS: AMITRIPTYLINE HCL 50 MG TABLET PO SCH (20:56)
[2023-06-01] MEDS: TAMSULOSIN HCL 0.4 MG CAP.SR.24H PO SCH (20:56)
[2023-06-01] MEDS: ATORVASTATIN 10 MG TABLET PO SCH (20:56)
[2023-06-02] VITALS (14 sets, daily range): BP systolic 120–151; BP diastolic 50–82; TEMP 97.6–98.9; O2SAT 94–100
[2023-06-02] MEDS: IPRATROPIUM BROMIDE 0.5 MG/2.5 ML NEBU NEB SCH ×4 (00:59→19:16)
[2023-06-02] MEDS: LEVALBUTEROL HCL NEB 0.63 MG/3 ML NEBU NEB SCH ×4 (00:59→19:16)
[2023-06-02 05:32] LABS: ABG BASE EXCESS -1.5 mmol/L (-2.0-2.0); ABG HCO3 21.4 mmol/L (22.0-26.0); ABG PCO2 30.8 mmHg (35.0-48.0); ABG PH 7.459 (7.340-7.440); AaDO2 94.3 mmHg; COHb 0.1 % (0.0-3.9); MetHb 0.2 % (0.0-1.5); O2Hb 93.6 % (94.0-97.0)
[2023-06-02 07:16] LABS: BASOPHILS % (AUTO) 0.3 % (0.0-2.0); EOSINOPHILS # (AUTO) 0.3 K/uL (0.0-0.7); EOSINOPHILS % (AUTO) 1.9 % (0.0-7.0); HEMATOCRIT 34.5 % (36.7-47.1); HEMOGLOBIN 11.4 g/dL (12.5-16.3); LYMPHOCYTES # (AUTO) 0.6 K/uL (0.8-4.8); LYMPHOCYTES % (AUTO) 3.8 % (20.5-51.5); MEAN CORPUSCULAR HEMOGLOBIN 31.4 uug (23.8-33.4); MEAN CORPUSCULAR HGB CONC 33 g/dL (32.5-36.3); MEAN CORPUSCULAR VOLUME 95.3 fL (73.0-96.2); MONOCYTES # (AUTO) 1.2 K/uL (0.1-1.30); MONOCYTES % (AUTO) 8.1 % (0.0-11.0); NEUTROPHILS % (AUTO) 85.9 % (38.5-71.5); PLATELET COUNT (AUTO) 186 K/uL (152-348); RED BLOOD CELL COUNT(AUTO) 3.62 MIL/uL (4.06-5.63); RED CELL DISTRIBUTION WIDTH 14.1 % (12.1-16.2); WHITE BLOOD COUNT (AUTO) 15.1 K/uL (3.6-10.2)
[2023-06-02 07:22] LABS: CALCIUM 8.5 mg/dL (8.5-10.1); CARBON DIOXIDE 25 mmol/L (21-32); CHLORIDE 116 mmol/L (98-107); CREATININE 1.8 mg/dL (0.6-1.3); GLUCOSE 156 mg/dL (74-106); POTASSIUM 3.3 mmol/L (3.5-5.1); SODIUM SERUM 150 mmol/L (136-145); UREA NITROGEN, BLOOD 41 mg/dL (7-18)
[2023-06-02 07:25] LABS: DIFFERENTIAL COMMENT 1
[2023-06-02 07:45] LABS: MAGNESIUM 1.6 mg/dL (1.8-2.4); VANCOMYCIN,RANDOM 22.1 ug/mL (20.0-30.0)
[2023-06-02] MEDS: ENSURE ENLIVE (VAN) 240 ML LIQUID PO SCH ×2 (08:00→17:00)
[2023-06-02] MEDS ORDERED: POTASSIUM CHLORIDE 40 MEQ in IV D5W 1000ML 1,000 ML IV SCH (08:29)
[2023-06-02] MEDS: METOPROLOL SUCCINATE XL 25 MG TAB.SR.24H PO SCH (09:00)
[2023-06-02] MEDS: FINASTERIDE 5 MG TABLET PO SCH (09:00)
[2023-06-02] MEDS: CARBAMAZEPINE 200 MG TABLET PO SCH ×2 (09:00→17:00)
[2023-06-02] MEDS: OXYBUTYNIN XL 5 MG TABSR PO SCH (09:00)
[2023-06-02] MEDS: POTASSIUM CHLORIDE 40 MEQ in IV D5W 1000ML 1,000 ML IV PRN (10:58)
[2023-06-02] MEDS ORDERED: IV D5W 1000ML 1,000 ML IV ONE (11:15)
[2023-06-02] MEDS ORDERED: MAGNESIUM SULFATE/D5W 100 ML IV SCH (11:45)
[2023-06-02] MEDS ORDERED: POTASSIUM CHLORIDE 50 ML IV SCH (13:00)
[2023-06-02] MEDS ORDERED: CEFEPIME HCL 2 G in IV DEXTROSE 5% 100 ML IV SCH (18:00)
[2023-06-02] MEDS: TAMSULOSIN HCL 0.4 MG CAP.SR.24H PO SCH (20:05)
[2023-06-02] MEDS: ATORVASTATIN 10 MG TABLET PO SCH (20:05)
[2023-06-02] MEDS: AMITRIPTYLINE HCL 50 MG TABLET PO SCH (20:05)
[2023-06-02] MEDS ORDERED: LORAZEPAM 2 MG/1 ML VIAL IV PRN (20:40)
[2023-06-03] VITALS (13 sets, daily range): BP systolic 104–141; BP diastolic 62–75; TEMP 97.3–98.2; O2SAT 96–100
[2023-06-03] MEDS: POTASSIUM CHLORIDE 40 MEQ in IV D5W 1000ML 1,000 ML IV PRN (00:25)
[2023-06-03] MEDS: IPRATROPIUM BROMIDE 0.5 MG/2.5 ML NEBU NEB SCH ×4 (00:42→21:01)
[2023-06-03] MEDS: LEVALBUTEROL HCL NEB 0.63 MG/3 ML NEBU NEB SCH ×4 (00:42→21:01)
[2023-06-03 06:46] LABS: ABG BASE EXCESS -1.7 mmol/L (-2.0-2.0); ABG PCO2 30.6 mmHg (35.0-48.0); ABG PH 7.455 (7.340-7.440); ABG PO2 67.7 mmHg (75.0-100.0); ABG TOTAL HEMOGLOBIN 15.3 G/dL (14.0-18.0); AaDO2 94.6 mmHg; MetHb 0.2 % (0.0-1.5)
[2023-06-03 06:53] LABS: BASOPHILS % (AUTO) 0.2 % (0.0-2.0); EOSINOPHILS # (AUTO) 0.2 K/uL (0.0-0.7); EOSINOPHILS % (AUTO) 1.2 % (0.0-7.0); HEMATOCRIT 35.2 % (36.7-47.1); HEMOGLOBIN 11.6 g/dL (12.5-16.3); LYMPHOCYTES # (AUTO) 1.1 K/uL (0.8-4.8); LYMPHOCYTES % (AUTO) 5.9 % (20.5-51.5); MEAN CORPUSCULAR HEMOGLOBIN 31.1 uug (23.8-33.4); MEAN CORPUSCULAR HGB CONC 33 g/dL (32.5-36.3); MEAN CORPUSCULAR VOLUME 94.5 fL (73.0-96.2); MONOCYTES # (AUTO) 1.2 K/uL (0.1-1.30); MONOCYTES % (AUTO) 6.2 % (0.0-11.0); NEUTROPHILS # (AUTO) 16.2 K/uL (1.8-8.9); NEUTROPHILS % (AUTO) 86.5 % (38.5-71.5); PLATELET COUNT (AUTO) 216 K/uL (152-348); RED BLOOD CELL COUNT(AUTO) 3.73 MIL/uL (4.06-5.63); RED CELL DISTRIBUTION WIDTH 14.3 % (12.1-16.2); WHITE BLOOD COUNT (AUTO) 18.8 K/uL (3.6-10.2)
[2023-06-03 07:13] LABS: CALCIUM 8.3 mg/dL (8.5-10.1); CARBON DIOXIDE 23 mmol/L (21-32); CHLORIDE 111 mmol/L (98-107); CREATININE 2.8 mg/dL (0.6-1.3); GLUCOSE 143 mg/dL (74-106); MAGNESIUM 1.7 mg/dL (1.8-2.4); POTASSIUM 3.7 mmol/L (3.5-5.1); SODIUM SERUM 143 mmol/L (136-145); UREA NITROGEN, BLOOD 46 mg/dL (7-18); VANCOMYCIN,RANDOM 17.5 ug/mL (20.0-30.0)
[2023-06-03 07:19] LABS: DIFFERENTIAL COMMENT 1
[2023-06-03] MEDS: ENSURE ENLIVE (VAN) 240 ML LIQUID PO SCH ×2 (08:00→16:35)
[2023-06-03] MEDS ORDERED: VANCOMYCIN IV 500 MG in IV DEXTROSE 5% 100 ML IV ONE (08:30)
[2023-06-03] MEDS ORDERED: HEPARIN SODIUM,PORCINE 5,000 UNITS/ML VIAL SQ SCH (09:00)
[2023-06-03] MEDS ORDERED: FUROSEMIDE 40 MG/4 ML VIAL IV ONE (09:15)
[2023-06-03] MEDS ORDERED: MAGNESIUM SULFATE/D5W 100 ML IV SCH (09:15)
[2023-06-03] MEDS: CARBAMAZEPINE 200 MG TABLET PO SCH ×2 (09:37→16:55)
[2023-06-03] MEDS: OXYBUTYNIN XL 5 MG TABSR PO SCH (09:38)
[2023-06-03] MEDS: FINASTERIDE 5 MG TABLET PO SCH (09:38)
[2023-06-03] MEDS: METOPROLOL SUCCINATE XL 25 MG TAB.SR.24H PO SCH (09:40)
[2023-06-03] MEDS ORDERED: HEPARIN/D5W DRIP 500 ML IV PRN ×3 (11:15→11:45)
[2023-06-03] MEDS ORDERED: HEPARIN SODIUM,PORCINE 5,000 UNITS/ML VIAL IV ONE ×2 (11:30→11:45)
[2023-06-03] MEDS ORDERED: POTASSIUM CHLORIDE 40 MEQ in IV D5W 1000ML 1,000 ML IV PRN (12:15)
[2023-06-03] MEDS: MEROPENEM 500 MG in IV NORMAL SALINE 50 ML IV SCH (17:18)
[2023-06-03] MEDS: HEPARIN SODIUM,PORCINE 5,000 UNITS/ML VIAL SQ SCH ×2 (21:00→21:32)
[2023-06-03] MEDS: ATORVASTATIN 10 MG TABLET PO SCH (21:26)
[2023-06-03] MEDS: AMITRIPTYLINE HCL 50 MG TABLET PO SCH (21:26)
[2023-06-03] MEDS: TAMSULOSIN HCL 0.4 MG CAP.SR.24H PO SCH (21:27)
[2023-06-03] MEDS ORDERED: MEROPENEM 0.5 G in IV NORMAL SALINE 50 ML IV SCH (22:00)
[2023-06-04] VITALS (13 sets, daily range): BP systolic 93–105; BP diastolic 56–64; TEMP 98.1–98.8; O2SAT 96–100
[2023-06-04] MEDS: LEVALBUTEROL HCL NEB 0.63 MG/3 ML NEBU NEB SCH ×4 (03:50→19:48)
[2023-06-04] MEDS: IPRATROPIUM BROMIDE 0.5 MG/2.5 ML NEBU NEB SCH ×4 (03:50→19:48)
[2023-06-04] MEDS: MEROPENEM 500 MG in IV NORMAL SALINE 50 ML IV SCH ×2 (05:22→16:31)
[2023-06-04 07:09] LABS: BASOPHILS % (AUTO) 0.2 % (0.0-2.0); EOSINOPHILS # (AUTO) 0.2 K/uL (0.0-0.7); EOSINOPHILS % (AUTO) 1.3 % (0.0-7.0); HEMOGLOBIN 10.3 g/dL (12.5-16.3); LYMPHOCYTES # (AUTO) 0.6 K/uL (0.8-4.8); LYMPHOCYTES % (AUTO) 3.5 % (20.5-51.5); MEAN CORPUSCULAR HEMOGLOBIN 31.7 uug (23.8-33.4); MEAN CORPUSCULAR HGB CONC 33 g/dL (32.5-36.3); MEAN CORPUSCULAR VOLUME 95.4 fL (73.0-96.2); MONOCYTES # (AUTO) 0.8 K/uL (0.1-1.30); MONOCYTES % (AUTO) 4.7 % (0.0-11.0); NEUTROPHILS # (AUTO) 15.9 K/uL (1.8-8.9); NEUTROPHILS % (AUTO) 90.3 % (38.5-71.5); PLATELET COUNT (AUTO) 186 K/uL (152-348); RED BLOOD CELL COUNT(AUTO) 3.25 MIL/uL (4.06-5.63); RED CELL DISTRIBUTION WIDTH 14.7 % (12.1-16.2); WHITE BLOOD COUNT (AUTO) 17.6 K/uL (3.6-10.2)
[2023-06-04 07:32] LABS: CALCIUM 8.3 mg/dL (8.5-10.1); CARBON DIOXIDE 21 mmol/L (21-32); CHLORIDE 108 mmol/L (98-107); CREATININE 4.3 mg/dL (0.6-1.3); GLUCOSE 157 mg/dL (74-106); POTASSIUM 4.1 mmol/L (3.5-5.1); SODIUM SERUM 140 mmol/L (136-145); UREA NITROGEN, BLOOD 64 mg/dL (7-18); VANCOMYCIN,RANDOM 20.5 ug/mL (20.0-30.0)
[2023-06-04 07:43] LABS: DIFFERENTIAL COMMENT 1
[2023-06-04] MEDS: ENSURE ENLIVE (VAN) 240 ML LIQUID PO SCH ×2 (08:00→16:31)
[2023-06-04] MEDS: METOPROLOL SUCCINATE XL 25 MG TAB.SR.24H PO SCH (09:00)
[2023-06-04 09:09] LABS: ABG BASE EXCESS -6.3 mmol/L (-2.0-2.0); ABG HCO3 16.8 mmol/L (22.0-26.0); ABG PCO2 26.3 mmHg (35.0-48.0); ABG PH 7.422 (7.340-7.440); ABG PO2 83.4 mmHg (75.0-100.0); ABG SITE LEFT BRACHIAL; ABG TOTAL HEMOGLOBIN 11.3 G/dL (14.0-18.0); AaDO2 96.6 mmHg; COHb 0.3 % (0.0-3.9); MetHb 0.3 % (0.0-1.5); O2Hb 95.3 % (94.0-97.0)
[2023-06-04] MEDS: OXYBUTYNIN XL 5 MG TABSR PO SCH (09:38)
[2023-06-04] MEDS: CARBAMAZEPINE 200 MG TABLET PO SCH ×2 (09:38→16:31)
[2023-06-04] MEDS: FINASTERIDE 5 MG TABLET PO SCH (09:38)
[2023-06-04] MEDS: HEPARIN SODIUM,PORCINE 5,000 UNITS/ML VIAL SQ SCH ×2 (09:39→21:21)
[2023-06-04] MEDS ORDERED: IV NS 1000 ML 1,000 ML IV ONE (11:00)
[2023-06-04 13:21] LABS: *BLOOD, URINE 3+ (NEGATIVE); *CLARITY,URINE TURBID (CLEAR); *COLOR,URINE Brown (YELLOW); *KETONES,URINE TRACE (NEGATIVE); *PROTEIN,URINE 2+ (NEGATIVE); *UROBILINOGEN,URINE 0.2 E.U./dl (NORMAL); LEUKOCYTE ESTERASE ,URINE TRACE (NEGATIVE); NITRITE, URINE NEGATIVE (NEGATIVE); PH,URINE 5.5 (5.0-8.0); UGLUCOSE NEGATIVE (NEGATIVE)
[2023-06-04 13:31] LABS: *BILIRUBIN,URIN 1+ (NEGATIVE)
[2023-06-04 13:40] LABS: *URINE TOTAL PROTEIN RANDOM 154.8 mg/dL (<150/24HR)
[2023-06-04 13:55] LABS: RBC,URINE TNTC /HPF (0-3)
[2023-06-04 13:56] LABS: BACTERIA,URINE MODERATE /HPF (NONE SEEN); COARSE GRANULAR CASTS,URINE 0-3 /LPF; URINE AMORPHOUS URATE MODERATE /HPF
[2023-06-04] MEDS ORDERED: OLANZAPINE 10 MG VIAL IM ONE (16:03)
[2023-06-04] MEDS: TAMSULOSIN HCL 0.4 MG CAP.SR.24H PO SCH (21:18)
[2023-06-04] MEDS: AMITRIPTYLINE HCL 50 MG TABLET PO SCH (21:18)
[2023-06-04] MEDS: ATORVASTATIN 10 MG TABLET PO SCH (21:19)
[2023-06-05] VITALS (12 sets, daily range): BP systolic 94–115; BP diastolic 49–82; TEMP 97.8–98.4; O2SAT 94–99
[2023-06-05] MEDS: LEVALBUTEROL HCL NEB 0.63 MG/3 ML NEBU NEB SCH ×4 (01:01→20:10)
[2023-06-05] MEDS: IPRATROPIUM BROMIDE 0.5 MG/2.5 ML NEBU NEB SCH ×4 (01:01→20:09)
[2023-06-05] MEDS: MEROPENEM 500 MG in IV NORMAL SALINE 50 ML IV SCH ×2 (04:46→16:46)
[2023-06-05 07:03] LABS: BASOPHILS # (AUTO) 0.1 K/UL (0.0-0.2); BASOPHILS % (AUTO) 0.8 % (0.0-2.0); EOSINOPHILS # (AUTO) 0.2 K/uL (0.0-0.7); HEMATOCRIT 29.8 % (36.7-47.1); HEMOGLOBIN 9.8 g/dL (12.5-16.3); LYMPHOCYTES # (AUTO) 0.4 K/uL (0.8-4.8); LYMPHOCYTES % (AUTO) 2.9 % (20.5-51.5); MEAN CORPUSCULAR HEMOGLOBIN 31.7 uug (23.8-33.4); MEAN CORPUSCULAR HGB CONC 33 g/dL (32.5-36.3); MEAN CORPUSCULAR VOLUME 96.3 fL (73.0-96.2); MONOCYTES # (AUTO) 0.7 K/uL (0.1-1.30); MONOCYTES % (AUTO) 4.7 % (0.0-11.0); NEUTROPHILS % (AUTO) 90.6 % (38.5-71.5); PLATELET COUNT (AUTO) 186 K/uL (152-348); RED CELL DISTRIBUTION WIDTH 14.5 % (12.1-16.2); WHITE BLOOD COUNT (AUTO) 15.4 K/uL (3.6-10.2)
[2023-06-05 07:11] LABS: CALCIUM 8.1 mg/dL (8.5-10.1); CARBON DIOXIDE 15 mmol/L (21-32); CHLORIDE 112 mmol/L (98-107); GLUCOSE 105 mg/dL (74-106); POTASSIUM 4.3 mmol/L (3.5-5.1); SODIUM SERUM 144 mmol/L (136-145); UREA NITROGEN, BLOOD 69 mg/dL (7-18)
[2023-06-05 07:38] LABS: DIFFERENTIAL COMMENT 1
[2023-06-05] MEDS: ENSURE ENLIVE (VAN) 240 ML LIQUID PO SCH ×2 (08:00→16:45)
[2023-06-05] MEDS: LORAZEPAM 2 MG/1 ML VIAL IV PRN (08:14)
[2023-06-05] MEDS: CARBAMAZEPINE 200 MG TABLET PO SCH ×2 (08:14→16:45)
[2023-06-05] MEDS: FINASTERIDE 5 MG TABLET PO SCH (08:14)
[2023-06-05] MEDS: METOPROLOL SUCCINATE XL 25 MG TAB.SR.24H PO SCH (08:17)
[2023-06-05] MEDS: HEPARIN SODIUM,PORCINE 5,000 UNITS/ML VIAL SQ SCH ×2 (08:18→21:00)
[2023-06-05] MEDS: OXYBUTYNIN XL 5 MG TABSR PO SCH (08:21)
[2023-06-05] MEDS ORDERED: IV D5/ 0.9% NACL 1,000 ML IV PRN (08:30)
[2023-06-05] MEDS: QUETIAPINE FUMARATE 25 MG TABLET PO SCH ×2 (11:34→16:45)
[2023-06-05] MEDS ORDERED: VANCOMYCIN IV 500 MG in IV DEXTROSE 5% 100 ML IV ONE (13:00)
[2023-06-05 13:08] LABS: ABG BASE EXCESS -5.9 mmol/L (-2.0-2.0); ABG PCO2 29.4 mmHg (35.0-48.0); ABG PH 7.404 (7.340-7.440); ABG PO2 71.6 mmHg (75.0-100.0); ABG SITE RIGHT RADIAL; ABG TOTAL HEMOGLOBIN 9.2 G/dL (14.0-18.0); AaDO2 94.8 mmHg; COHb 0.3 % (0.0-3.9); MetHb 0.4 % (0.0-1.5); O2Hb 92.9 % (94.0-97.0)
[2023-06-05] MEDS ORDERED: IV LACTATED RINGERS SOLUTION 1,000 ML IV PRN (14:50)
[2023-06-05] MEDS: AMITRIPTYLINE HCL 50 MG TABLET PO SCH (20:57)
[2023-06-05] MEDS: TAMSULOSIN HCL 0.4 MG CAP.SR.24H PO SCH (21:21)
[2023-06-05] MEDS: ATORVASTATIN 10 MG TABLET PO SCH (21:22)
[2023-06-06] VITALS (13 sets, daily range): BP systolic 115–127; BP diastolic 67–75; TEMP 97.6–98.4; O2SAT 94–99
[2023-06-06] MEDS: LEVALBUTEROL HCL NEB 0.63 MG/3 ML NEBU NEB SCH ×4 (01:13→23:53)
[2023-06-06] MEDS: IPRATROPIUM BROMIDE 0.5 MG/2.5 ML NEBU NEB SCH ×4 (01:14→23:53)
[2023-06-06] MEDS: LORAZEPAM 2 MG/1 ML VIAL IV PRN (05:42)
[2023-06-06] MEDS: MEROPENEM 500 MG in IV NORMAL SALINE 50 ML IV SCH ×2 (05:43→17:39)
[2023-06-06 07:24] LABS: BASOPHILS % (AUTO) 0.5 % (0.0-2.0); EOSINOPHILS # (AUTO) 0.2 K/uL (0.0-0.7); EOSINOPHILS % (AUTO) 1.7 % (0.0-7.0); HEMATOCRIT 29.1 % (36.7-47.1); HEMOGLOBIN 9.8 g/dL (12.5-16.3); LYMPHOCYTES # (AUTO) 0.6 K/uL (0.8-4.8); LYMPHOCYTES % (AUTO) 5.9 % (20.5-51.5); MEAN CORPUSCULAR HEMOGLOBIN 31.7 uug (23.8-33.4); MEAN CORPUSCULAR HGB CONC 34 g/dL (32.5-36.3); MEAN CORPUSCULAR VOLUME 94.2 fL (73.0-96.2); MONOCYTES # (AUTO) 0.5 K/uL (0.1-1.30); MONOCYTES % (AUTO) 4.8 % (0.0-11.0); NEUTROPHILS # (AUTO) 8.8 K/uL (1.8-8.9); NEUTROPHILS % (AUTO) 87.1 % (38.5-71.5); PLATELET COUNT (AUTO) 225 K/uL (152-348); RED BLOOD CELL COUNT(AUTO) 3.08 MIL/uL (4.06-5.63); WHITE BLOOD COUNT (AUTO) 10.1 K/uL (3.6-10.2)
[2023-06-06 07:29] LABS: DIFFERENTIAL COMMENT 1
[2023-06-06 07:50] LABS: CALCIUM 8.3 mg/dL (8.5-10.1); CARBON DIOXIDE 19 mmol/L (21-32); CHLORIDE 119 mmol/L (98-107); CREATININE 3.4 mg/dL (0.6-1.3); GLUCOSE 106 mg/dL (74-106); POTASSIUM 3.9 mmol/L (3.5-5.1); SODIUM SERUM 152 mmol/L (136-145); UREA NITROGEN, BLOOD 69 mg/dL (7-18)
[2023-06-06] MEDS: ENSURE ENLIVE (VAN) 240 ML LIQUID PO SCH ×2 (08:00→17:29)
[2023-06-06] MEDS: METOPROLOL SUCCINATE XL 25 MG TAB.SR.24H PO SCH (09:00)
[2023-06-06] MEDS: QUETIAPINE FUMARATE 25 MG TABLET PO SCH ×2 (09:00→17:29)
[2023-06-06] MEDS: CARBAMAZEPINE 200 MG TABLET PO SCH ×2 (09:00→17:29)
[2023-06-06] MEDS: OXYBUTYNIN XL 5 MG TABSR PO SCH (09:00)
[2023-06-06] MEDS: FINASTERIDE 5 MG TABLET PO SCH (09:00)
[2023-06-06] MEDS: HEPARIN SODIUM,PORCINE 5,000 UNITS/ML VIAL SQ SCH ×2 (09:14→21:04)
[2023-06-06] MEDS: IV 1/2NS 1000 ML 1,000 ML IV PRN (10:38)
[2023-06-06 15:48] LABS: VANCOMYCIN,RANDOM 21.8 ug/mL (20.0-30.0)
[2023-06-06] MEDS: ATORVASTATIN 10 MG TABLET PO SCH (21:02)
[2023-06-06] MEDS: AMITRIPTYLINE HCL 50 MG TABLET PO SCH (21:02)
[2023-06-06] MEDS: TAMSULOSIN HCL 0.4 MG CAP.SR.24H PO SCH (21:02)
[2023-06-07] VITALS (11 sets, daily range): BP systolic 128–135; BP diastolic 68–80; TEMP 97.6–98.5; O2SAT 83–99
[2023-06-07] MEDS: IV 1/2NS 1000 ML 1,000 ML IV PRN
[2023-06-07] MEDS: LEVALBUTEROL HCL NEB 0.63 MG/3 ML NEBU NEB SCH ×3 (02:18→13:34)
[2023-06-07] MEDS: IPRATROPIUM BROMIDE 0.5 MG/2.5 ML NEBU NEB SCH ×3 (02:18→13:34)
[2023-06-07] MEDS: MEROPENEM 500 MG in IV NORMAL SALINE 50 ML IV SCH (05:18)
[2023-06-07] MEDS: ENSURE ENLIVE (VAN) 240 ML LIQUID PO SCH (08:33)
[2023-06-07 08:42] LABS: BASOPHILS # (AUTO) 0.3 K/UL (0.0-0.2); BASOPHILS % (AUTO) 2.8 % (0.0-2.0); EOSINOPHILS # (AUTO) 0.2 K/uL (0.0-0.7); EOSINOPHILS % (AUTO) 2.1 % (0.0-7.0); HEMATOCRIT 29.6 % (36.7-47.1); HEMOGLOBIN 10.1 g/dL (12.5-16.3); LYMPHOCYTES # (AUTO) 0.4 K/uL (0.8-4.8); LYMPHOCYTES % (AUTO) 3.9 % (20.5-51.5); MEAN CORPUSCULAR HEMOGLOBIN 32.2 uug (23.8-33.4); MEAN CORPUSCULAR HGB CONC 34 g/dL (32.5-36.3); MEAN CORPUSCULAR VOLUME 94.4 fL (73.0-96.2); MONOCYTES # (AUTO) 0.6 K/uL (0.1-1.30); MONOCYTES % (AUTO) 5.8 % (0.0-11.0); NEUTROPHILS # (AUTO) 8.6 K/uL (1.8-8.9); NEUTROPHILS % (AUTO) 85.4 % (38.5-71.5); PLATELET COUNT (AUTO) 261 K/uL (152-348); RED BLOOD CELL COUNT(AUTO) 3.14 MIL/uL (4.06-5.63); RED CELL DISTRIBUTION WIDTH 14.4 % (12.1-16.2)
[2023-06-07 08:48] LABS: CALCIUM 7.7 mg/dL (8.5-10.1); CARBON DIOXIDE 24 mmol/L (21-32); CHLORIDE 119 mmol/L (98-107); CREATININE 2.4 mg/dL (0.6-1.3); GLUCOSE 126 mg/dL (74-106); POTASSIUM 3.4 mmol/L (3.5-5.1); SODIUM SERUM 152 mmol/L (136-145); UREA NITROGEN, BLOOD 59 mg/dL (7-18)
[2023-06-07 09:15] LABS: DIFFERENTIAL COMMENT 1
[2023-06-07] MEDS: QUETIAPINE FUMARATE 25 MG TABLET PO SCH (10:17)
[2023-06-07] MEDS: FINASTERIDE 5 MG TABLET PO SCH (10:17)
[2023-06-07] MEDS: OXYBUTYNIN XL 5 MG TABSR PO SCH (10:17)
[2023-06-07] MEDS: CARBAMAZEPINE 200 MG TABLET PO SCH (10:17)
[2023-06-07] MEDS: METOPROLOL SUCCINATE XL 25 MG TAB.SR.24H PO SCH (10:18)
[2023-06-07] MEDS: HEPARIN SODIUM,PORCINE 5,000 UNITS/ML VIAL SQ SCH (10:20)
[2023-06-07] MEDS ORDERED: IV DEXTROSE 5% 500 ML IV PRN (10:45)
[2023-06-07] MEDS ORDERED: POTASSIUM CHLORIDE 50 ML IV SCH (11:00)
[2023-06-07] MEDS ORDERED: VANCOMYCIN IV 500 MG in IV DEXTROSE 5% 100 ML IV ONE (13:00)
== END 2023-06-07 16:11 | disposition hospice, inpatient (51) | DRG 177 ==
LOC: ER 12:10 → MED 16:21 → TELE3 17:35 → MEDSURG3 05-26 09:30 → TELE3 05-27 09:10 → MEDSURG3 06-04 10:50
PROVIDERS: ADMIT Internal Medicine; ATTEND Internal Medicine
DX: J69.0 Pneumonitis due to inhalation of food and vomit (principal); A41.9 Sepsis, unspecified organism; N17.0 Acute kidney failure with tubular necrosis; J96.01 Acute respiratory failure with hypoxia; G92.8 Other toxic encephalopathy; I26.99 Other pulmonary embolism without acute cor pulmonale; I82.811 Embolism and thrombosis of superficial veins of right lower extremity; I69.354 Hemiplegia and hemiparesis following cerebral infarction affecting left non-dominant side; F03.911 Unspecified dementia, unspecified severity, with agitation; F03.93 Unspecified dementia, unspecified severity, with mood disturbance; D68.59 Other primary thrombophilia; E87.20 Acidosis, unspecified; E44.0 Moderate protein-calorie malnutrition; N13.8 Other obstructive and reflux uropathy; F03.92 Unspecified dementia, unspecified severity, with psychotic disturbance; E86.0 Dehydration; R79.89 Other specified abnormal findings of blood chemistry; Z66 Do not resuscitate; B35.1 Tinea unguium; Z79.02 Long term (current) use of antithrombotics/antiplatelets; Z51.5 Encounter for palliative care; E78.5 Hyperlipidemia, unspecified; N32.81 Overactive bladder; N40.1 Benign prostatic hyperplasia with lower urinary tract symptoms; R13.10 Dysphagia, unspecified; R62.7 Adult failure to thrive; R29.6 Repeated falls; R33.9 Retention of urine, unspecified; Z74.09 Other reduced mobility; G62.9 Polyneuropathy, unspecified; I12.9 Hypertensive chronic kidney disease with stage 1 through stage 4 chronic kidney disease, or unspecified chronic kidney disease; N18.9 Chronic kidney disease, unspecified; E87.6 Hypokalemia; E87.5 Hyperkalemia; E88.09 Other disorders of plasma-protein metabolism, not elsewhere classified; I25.10 Atherosclerotic heart disease of native coronary artery without angina pectoris; E83.42 Hypomagnesemia; E87.70 Fluid overload, unspecified
CPT/HCPCS: 36415; 36600; 70030-TC; 70450; 71045; 76770; 82803; 83605; 83735; 83970; 84100; 84155; 84165; 84300; 84443; 84484; 85025; 85610; 85730; 87040; 93005; 93307; 94640; 94664; 94760; A4606; A4663; A6209; G0378; J0692; J1644; J1650; J1940; J2060; J2185; J2358; J2405; J2543; J3370; J3475; J3480; J3490; J3590; J7040; J7042; J7050; J7060; J7070; J7120; J7614

== ENCOUNTER 2023-06-07 17:04 | Inpatient (IN) | payer MEDICARE, OTHER ==
[~2023-06-07] VITALS: Ht 162.6 cm; Wt 65.3 kg
[~2023-06-07 17:04] MED LIST: AMIT50TA3 PO; BRIM5DRO2 EACHEYE; CARB200C6 PO; CLOP75TA33 PO; ESCI-9 PO; FINA5TAB11 PO; HYDR12.55 PO; LATA2.5D2 EACHEYE; LOVA40TA2 PO; METO-356 PO; OXYB-58 PO; PSYL1POW MC; TAMS-3 PO; TERB250T53 PO
[2023-06-07] MEDS ORDERED: LORAZEPAM 2 MG/1 ML VIAL IV PRN (19:00)
[2023-06-07] MEDS ORDERED: ACETAMINOPHEN 650 MG SUPP.RECT RC PRN (19:00)
[2023-06-07] MEDS: MORPHINE SULFATE 2 MG/1 ML DISP.SYRIN IV PRN (20:07)
[2023-06-07 21:28] VITALS: BP 125/74; TEMP 98.2; O2SAT 99
[2023-06-07 21:38] VITALS: O2SAT 91
[2023-06-08] MEDS: MORPHINE SULFATE 2 MG/1 ML DISP.SYRIN IV PRN (04:14)
[2023-06-08 05:30] VITALS: BP 120/68; TEMP 98.6; O2SAT 90
[2023-06-08 12:00] VITALS: O2SAT 93
[2023-06-08] MEDS ORDERED: ACETAMINOPHEN 650 MG SUPP.RECT RC PRN (16:30)
[2023-06-08] MEDS ORDERED: BISACODYL 10 MG SUPP.RECT RC PRN (16:30)
[2023-06-08] MEDS ORDERED: ONDANSETRON 4 MG/2 ML VIAL IV PRN (16:30)
[2023-06-08] MEDS ORDERED: MORPHINE SULFATE 2 MG/1 ML DISP.SYRIN IV PRN (16:30)
[2023-06-08 20:00] VITALS: BP 121/72; TEMP 98.7; O2SAT 99
[2023-06-09 03:16] VITALS: O2SAT 91
[2023-06-09 04:00] VITALS: BP 130/68; TEMP 98.4; O2SAT 98
[2023-06-09 09:00] VITALS: BP 103/65; TEMP 98.1; O2SAT 97
[2023-06-09] MEDS ORDERED: MORPHINE SULFATE 4 MG/1 ML DISP.SYRIN IV PRN (15:15)
[2023-06-09 16:46] VITALS: BP 122/70; TEMP 97.6; O2SAT 97
[2023-06-09 17:42] VITALS: O2SAT 97
[2023-06-09 21:28] VITALS: BP 117/72; TEMP 97.4; O2SAT 97
[2023-06-09] MEDS: LORAZEPAM 2 MG/1 ML VIAL IV PRN (23:26)
[2023-06-10 04:55] VITALS: BP 136/59; TEMP 97.7; O2SAT 97
[2023-06-10] MEDS: LORAZEPAM 2 MG/1 ML VIAL IV PRN (09:23)
[2023-06-10 09:32] VITALS: BP 113/68; TEMP 97.5; O2SAT 99
[2023-06-10 12:00] VITALS: BP 103/58; TEMP 98.1; O2SAT 99
[2023-06-10 15:50] VITALS: BP 122/68; TEMP 97.9; O2SAT 99
[2023-06-10 20:00] VITALS: BP 124/66; TEMP 98; O2SAT 98
[2023-06-11] MEDS: LORAZEPAM 2 MG/1 ML VIAL IV PRN (01:12)
[2023-06-11 04:00] VITALS: BP 110/55; TEMP 98; O2SAT 99
[2023-06-11 11:47] VITALS: BP 99/66; TEMP 97.6; O2SAT 98
[2023-06-11 15:54] VITALS: BP 98/66; TEMP 98.1; O2SAT 96
[2023-06-11] MEDS: LORAZEPAM 0.5 MG TABLET PO PRN ×2 (17:56→23:37)
[2023-06-11 20:02] VITALS: BP 124/54; TEMP 98.6; O2SAT 96
[2023-06-12 00:18] VITALS: O2SAT 97
[2023-06-12 04:28] VITALS: BP 115/66; TEMP 97.8; O2SAT 96
[2023-06-12] MEDS: LORAZEPAM 0.5 MG TABLET PO PRN (04:51)
== END 2023-06-12 10:17 | DRG 951 ==
LOC: HOSPICE3 17:04
PROVIDERS: ADMIT Nurse Practitioner Acute Care; ATTEND Nurse Practitioner Acute Care
DX: Z51.5 Encounter for palliative care (principal); J96.01 Acute respiratory failure with hypoxia; J69.0 Pneumonitis due to inhalation of food and vomit; G92.8 Other toxic encephalopathy; I26.99 Other pulmonary embolism without acute cor pulmonale; D68.59 Other primary thrombophilia; E87.0 Hyperosmolality and hypernatremia; I69.354 Hemiplegia and hemiparesis following cerebral infarction affecting left non-dominant side; F03.93 Unspecified dementia, unspecified severity, with mood disturbance; N17.9 Acute kidney failure, unspecified; I82.811 Embolism and thrombosis of superficial veins of right lower extremity; Z66 Do not resuscitate; Z74.09 Other reduced mobility; E83.42 Hypomagnesemia; E78.5 Hyperlipidemia, unspecified; R62.7 Adult failure to thrive; R13.10 Dysphagia, unspecified; I12.9 Hypertensive chronic kidney disease with stage 1 through stage 4 chronic kidney disease, or unspecified chronic kidney disease; N18.9 Chronic kidney disease, unspecified; N40.0 Benign prostatic hyperplasia without lower urinary tract symptoms; I25.10 Atherosclerotic heart disease of native coronary artery without angina pectoris
CPT/HCPCS: 94640; G0378; J2060; J2270